=== PATIENT | male | born 1975 | race Caucasian/White ===

== ENCOUNTER 2019-05-08 14:26 | Inpatient (IN) ==
[2019-05-08] MEDS ORDERED: SODIUM CHLORIDE 0.9% 500 ML IV SCH (15:00)
[2019-05-08 15:12] LABS: Basophils # (auto) 0.06 K/uL (0-0.2); Basophils % (auto) 0.8 %; Eosinophils # (auto) 0.22 K/uL (0-0.5); Eosinophils % (auto) 2.9 %; Hematocrit (blood only) 47.6 % (42-52); Hemoglobin 16.6 g/dL (14.0-18.0); Immature Granulocytes # (auto) 0.02 K/uL (0.00-0.02); Immature Granulocytes % (auto) 0.3 %; Lymphocytes # (auto) 1.46 K/uL (1.2-3.4); Lymphocytes % (auto) 19.2 %; Mean Corpuscular Hgb Conc 34.9 g/dL (32-36); Mean Corpuscular Volume 84.1 fL (80-100); Mean Platelet Volume 10.5 fL (7.4-10.4); Monocytes # (auto) 0.56 K/uL (0.11-0.59); Monocytes % (auto) 7.4 %; Neutrophils # (auto) 5.28 K/uL (1.4-6.5); Neutrophils % (auto) 69.4 %; Platelet Count 275 K/uL (130-400); RDW Coefficient of Variation 13.4 % (11.5-14.5); RDW Standard Deviation 40.5 fL (36.4-46.3); Red Blood Count 5.66 M/uL (4.7-6.1)
--- NOTE | 2019-05-08 15:13 | XRay Report ---
XR chest 1V portable HISTORY: 43 years-old Male Chest Pain acute atypical chest pain COMPARISON: Chest radiographs 12/04/2012 TECHNIQUE: Portable AP view of the chest FINDINGS: Partly mediastinal and hilar silhouettes appear unremarkable. There is no pneumothorax, pleural effus ion, focal airspace consolidation or overt pulmonary edema. Bones of the chest appear grossly intact. IMPRESSION: No acute process. The above report was generated using voice recognition software. It may contain grammatical, syntax o r spelling errors. Electronically signed by: Cliff Alford M.D. 05/08/2019 3:12 PM
[2019-05-08] MEDS ORDERED: DiphenhydrAMINE HCL 50 MG/ML VIAL IV STA (15:16)
[2019-05-08] MEDS ORDERED: SODIUM CHLORIDE 0.9% 1000ML 500 ML IV ONE (15:16)
[2019-05-08] MEDS ORDERED: PROCHLORPERAZINE 2 ML IV ONE (15:16)
[2019-05-08 15:35] LABS: Alanine Aminotransferase 29 U/L (12-78); Albumin Level 3.6 gm/dl (3.4-5.0); Aspartate Aminotransferase 20 U/L (15-37); BUN Creatinine Ratio 13.5 (10-20); Blood Urea Nitrogen 16 mg/dl (7-18); Calcium 8.3 mg/dl (8.5-10.1); Carbon Dioxide 25 mmol/L (21-32); Chloride 108 mmol/L (98-107); Est GFR (African American) 88.3; Est GFR (Non-African American) 76.2; Glucose 106 mg/dl (70-99); Potassium 3.7 mmol/L (3.5-5.1); Sodium 139 mmol/L (136-145)
[2019-05-08 15:49] LABS: Albumin Globulin Ratio 0.9 (0.9-2); Alkaline Phosphatase 105 U/L (45-117); Bilirubin,Total 0.4 mg/dl (0.2-1); Globulin 4.2 gm/dl (2.5-4.0); Magnesium 2.2 mg/dl (1.8-2.4); Phosphorus 2.5 mg/dl (2.5-4.9); Total Protein 7.8 gm/dl (6.4-8.2); Troponin I < 0.015 ng/ml (0-0.045)
[2019-05-08] MEDS ORDERED: OPTIRAY 320 125ml IV PRN (16:02)
--- NOTE | 2019-05-08 16:14 | CT Scan Report ---
UNENHANCED CT OF THE BRAIN; CT ANGIOGRAM OF THE BRAIN; CT ANGIOGRAM OF THE NECK CLINICAL HISTORY: Ataxia. COMPARISON STUDY: No priors. TECHNIQUE: Unenhanced axial CT scan of the brain is performed. Subsequently, following the IV adminis tration of 120 of Optiray 320, CT angiogram of the head and neck was performed from the aortic arch t o the vertex. Images are reviewed in the axial, sagittal, and coronal planes. 3-D MIPS images are cre ated and assessed. IV contrast was administered without complication. All measurements were calculate d based on NASCET criteria. A dose lowering technique was utilized adhering to the principles of ALA RA. CT DOSE: 1301.31 mGy.cm FINDINGS: Brain parenchyma: The brain parenchyma is normal in appearance. There is no hemorrhage, mass effect, or evidence of acute territorial ischemia by CT criteria. There is no evidence of enhancing mass lesi on on the angiogram phase images. The ventricles, sulci, and cisterns are normal in configuration. Gr ay-white matter differentiation is preserved. No extra-axial fluid collection is seen. Thoracic aorta: Visualized portions of the thoracic aorta are normal in caliber. The aortic arch demo nstrates bovine variant anatomy. Right carotid arterial system: The right common carotid artery is widely patent, as are the right int ernal and external carotid arteries. Left carotid arterial system: The left common carotid artery is widely patent, as are the left medical assistant internal medicine al and external carotid arteries. Vertebral arteries: The vertebral arteries are widely patent bilaterally and codominant. There is a s hort segment of fenestration of the right vertebral artery at the level of C2. Subclavian arteries: Widely patent bilaterally. Intracranial vasculature: There is origin of the right posterior cerebral artery. The internal carotid arteries are patent at the skull base, as are the anterior and middle cerebral arteries bilat erally. The vertebrobasilar system and posterior cerebral arteries are widely patent. The left verteb ral artery is dominant. There is no aneurysm, high-grade stenosis, or focal vessel cut off seen throu ghout the intracranial circulation. Jugular veins: Widely patent bilaterally. Dural sinuses: Patent. Lung apices: Partially visualized upper lobe lung parenchyma appears clear. Soft tissues: The visualized pharyngeal soft tissues are normal in appearance noting angiographic pha se technique. The oropharyngeal airway appears widely patent. The salivary and thyroid glands are nor mal in appearance. No cervical lymphadenopathy is seen. Skeletal structures: The calvarium appears intact. The cervical spine is within normal limits. Orbits: The bony orbits are intact. Orbital contents are normal in appearance. Sinuses and mastoids: The paranasal sinuses are clear. The mastoid air cells are well pneumatized. IMPRESSION: 1. There is no hemorrhage, mass effect, or evidence of acute territorial ischemia by CT criteria. 2. Unremarkable CT angiogram of the brain. 3. Unremarkable CT angiogram of the neck. Electronically signed by: Michael Jordan M.D. 05/08/2019 4:13 PM
[2019-05-08 16:31] LABS: Appearance Urine Cloudy (Clear); Bacteria Urine Automated Negative (Negative); Bilirubin Urine Negative (Negative); Color Urine Yellow; Epithelial Cell Urine Auto >30 /lpf (0-5); Glucose Urine UA Negative (Negative); Ketones Urine Negative (Negative); Leukocyte Esterase Urine Negative (Negative); Nitrite Urine Negative (Negative); Protein Urine Trace (Negative); Specific Gravity Urine 1.032 (1.000-1.030); Urobilinogen Urine Negative (Negative); pH Urine 6.5 (4.5-7.5)
[2019-05-08] MEDS ORDERED: GADOBUTROL 65ML VIAL IV PRN (20:27)
--- NOTE | 2019-05-08 20:43 | Magnetic Resonance Report ---
MRI OF THE BRAIN COMBO CLINICAL HISTORY: Ataxia. COMPARISON STUDY: CT of the brain performed the same day 05/08/2019. TECHNIQUE: MRI of the brain was performed utilizing various T1 and T2-weighted sequences in the axial , sagittal, and coronal planes. Contrast-enhanced sequences were acquired following the administratio n of 12 cc of Gadavist. FINDINGS: Brain parenchyma: There is an 11 mm focus of restricted diffusion identified in the left farida consist ent with an acute to subacute lacunar infarct. No additional foci of restricted diffusion are identif ied. There is minimal subcortical and periventricular microangiopathic change. There is no hemorrhage or mass effect. No enhancing mass lesion is identified on the postcontrast images. Munguia-white matte r differentiation is preserved. No extra-axial fluid collection is seen. The cerebellar tonsils are n ormal in configuration. Ventricles, sulci, and cisterns: Normal in configuration. Pituitary and sella: Unremarkable. Intracranial vasculature: Normal flow voids are maintained at the skull base. Orbits: The bony orbits are grossly intact. Orbital contents are normal in appearance. Sinuses and mastoids: Trace mucosal thickening is noted in the maxillary antra and ethmoid sinuses. T he mastoid air cells are clear. Calvarium: Unremarkable. Cervical cord: Partially visualized cervical spinal cord is normal in morphology and signal intensity . IMPRESSION: 1. There is an 11 mm focus of restricted diffusion identified in the left farida consistent with an acu te to subacute lacunar infarct. 2. No additional foci of restricted diffusion are identified. 3. There is no hemorrhage or mass effect. Electronically signed by: Michael Jordan M.D. 05/08/2019 8:42 PM
[2019-05-08] MEDS ORDERED: ASPIRIN CHEW 324 MG PO STA (21:38)
--- NOTE | 2019-05-08 22:12 | History & Physical Report ---
Date of Service May 08, 2019 Assessment & Plan (1) Stroke: Pt is a 43yo with a Hx of HTN not currently on medication presenting with new onset aphasia and coordination problems. Was found to have a lacunar stroke in the ED. Stroke -Pt out of the TPA window -MRI 05/08 showing an acute infarct in the left farida suggesting a lacunar stroke. -Heat CT, Head CTA, neck CTA all unremarkable. -will start on aspirin, high intensity statin -will get an echo -will start a hypercoaguable workup -will get lipid panel, hgb a1c -pt/ot, speech evals ordered -neuro consult placed -will admit to PCU with tele for neuro monitoring HTN -will allow a permissive HTN post-stroke currently -For BPs greater than systolic 180 or diastolic 110 can consider prn labetalol -will likely need watermelon inspector treatment DVT prophylaxis: SCDs until hypercoaguable workup done. Then can consider chemical prophylaxis. FEN/GI: Heart healthy diet CODE STATUS: FULL Dispo: PCU/Tele History of Present Illness Primary Care Provider: Renaldo Jacobo III, MIRIAN Pt is a 43yo with a Hx of HTN not currently on medication presenting with new onset aphasia and what he describes as right sided coordination problems. Was found to have a lacunar stroke in the ED. Pt states that he has a Hx of HTN that he was treating with exercise and diet after stopping his medication about 1 year ago (not sure what medication he was on). Denies a Hx of HTN or HLD, as well as a family Hx of it. States he was in his usual state of health AM 05/07 when he noticed he was having right sided coordination problems and difficulty getting out his words. PMHx: HTN Social Hx: Lives at home with ; states diet is usually healthy when is around but he had donuts this AM since she was away. States he exercises by walking the dog and riding to work. Denies a smoking Hx, use of alcohol or recreational drugs. Meds: None Allergies: None Allergies Allergy/AdvReac Type Severity Reaction Status Date / Time No Known Drug Allergies Allergy . Verified 05/08/19 15:48 Home Medications Home Medications Medication Instructions Recorded Confirmed Type No Known Home Medications 05/08/19 05/08/19 History aspirin [Ecotrin Low Strength] 81 mg PO QAM 30 Days #30 tab 05/09/19 Rx atorvastatin 80 mg PO QAM 30 Days #60 tab 05/09/19 Rx lisinopril 20 mg PO DAILY #30 tab 05/09/19 Rx Past Med/Surg History Medical History HTN (hypertension) (Chronic) Surgical History S/P wisdom tooth extraction Family History Grandfather Prostate cancer Coronary arteriosclerosis Myocardial infarction Unknown No problems noted. 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 Required: No Beliefs That Will Affect Care: None marital status: Current Living Situation: Spouse current occupational status: employed current occupation: [employer] Feels Safe at Home: Yes Smoking Status: Never smoker Hx Alcohol Use: Yes Alcohol type: beer, wine and hard liquor Alcohol Intake Frequency: Rarely Alcohol Intake Frequency Comment: Once per month on average Hx Substance Use: No Childhood Exposure to Second-Hand Smoke: Yes Dental Care, Regularly: No Physical Activity Frequency: 3-4 Times per Week Seatbelt Use: always Sunscreen Use: Yes Review of Systems Constitutional: no fever, no chills, no fatigue, no weakness and no anorexia Eyes: no blind spots, no diplopia, no spots in vision and no worsening vision Ear, Nose, Mouth, Throat: no ear pain, no tinnitus and no dizziness Respiratory: no dyspnea Cardiovascular: no chest pain, no palpitations and no lightheadedness Gastrointestinal: no abdominal pain, no nausea and no vomiting Musculoskeletal: no body aches Neurologic: no falls, no dizziness and no headache(s) Physical Exam Constitutional: WD/WN, vitals as above + obese Eyes: PERRL, conjunctivae normal, anicteric sclerae ENMT: external ear and nose normal, oropharynx normal Respiratory: normal respiratory effort, lungs clear to auscultation Cardiovascular: RRR, no murmur, no edema Gastrointestinal (Abdomen): Inspection/Auscultation: abdomen normal to inspection Percussion/Palpation: abdomen soft; abdomen nontender and no guarding Musculoskeletal: no cyanosis or clubbing, extremities motor strength 5/5 Neurologic: PERRL, EOMI, accommodation nl, no face palsy, no dysarthria (pt with no dysarthria on exam) Psychiatric: A+Ox3, euthymic affect Results & Data Vital Signs (Past 12 Hours) Vital Signs Temp Pulse Pulse Resp BP BP Pulse Ox 05/08/19 21:11 70 18 174/120 H 96 05/08/19 19:32 72 18 173/113 H 98 05/08/19 18:08 87 18 151/113 H 97 05/08/19 16:11 75 18 175/115 H 98 05/08/19 14:54 88 18 192/119 H 98 05/08/19 14:35 36.6 C 92 H 20 216/130 H 97 Laboratory Results Laboratory Results - last 24 hr 05/08/19 05/08/19 05/08/19 15:01 15:01 15:01 WBC 7.60 RBC 5.66 Hgb 16.6 Hct 47.6 MCV 84.1 MCH 29.3 MCHC 34.9 RDW Std Deviation 40.5 RDW Coeff of Cara 13.4 Plt Count 275 MPV 10.5 H Immature Gran % (Auto) 0.3 Neut % (Auto) 69.4 Lymph % (Auto) 19.2 [place] % (Auto) 7.4 Eos % (Auto) 2.9 Baso % (Auto) 0.8 Immature Gran # (Auto) 0.02 Neut # (Auto) 5.28 Lymph # (Auto) 1.46 [place] # (Auto) 0.56 Eos # (Auto) 0.22 Baso # (Auto) 0.06 Sodium 139 Potassium 3.7 Chloride 108 H Carbon Dioxide 25 Anion Gap 6.0 BUN 16 Creatinine 1.16 Est Cr Clr Drug Dosing Not Reportable Est GFR ( Amer) 88.3 Est GFR (Non-Af Amer) 76.2 BUN/Creatinine Ratio 13.5 Glucose 106 H Calcium 8.3 L Phosphorus 2.5 Cancelled Magnesium 2.2 Cancelled Total Bilirubin 0.4 AST 20 ALT 29 Alkaline Phosphatase 105 Troponin I < 0.015 Total Protein 7.8 Albumin 3.6 Globulin 4.2 H Albumin/Globulin Ratio 0.9 Lipase 111 TSH 1.930 Cancelled Specimen Hemolysis Urine Color Urine Appearance Urine pH Ur Specific [place] Urine Protein Urine Glucose (UA) Urine Ketones Urine Blood Urine Nitrite Urine Bilirubin Urine Urobilinogen Ur Leukocyte Esterase Urine WBC (Auto) Urine RBC (Auto) U Hyaline Cast (Auto) U Epithel Cells (Auto) Urine Bacteria (Auto) 05/08/19 16:16 WBC RBC Hgb Hct MCV MCH MCHC RDW Std Deviation RDW Coeff of Cara Plt Count MPV Immature Gran % (Auto) Neut % (Auto) Lymph % (Auto) [place] % (Auto) Eos % (Auto) Baso % (Auto) Immature Gran # (Auto) Neut # (Auto) Lymph # (Auto) [place] # (Auto) Eos # (Auto) Baso # (Auto) Sodium Potassium Chloride Carbon Dioxide Anion Gap BUN Creatinine Est Cr Clr Drug Dosing Est GFR ( Amer) Est GFR (Non-Af Amer) BUN/Creatinine Ratio Glucose Calcium Phosphorus Magnesium Total Bilirubin AST ALT Alkaline Phosphatase Troponin I Total Protein Albumin Globulin Albumin/Globulin Ratio Lipase TSH Specimen Hemolysis Urine Color Yellow Urine Appearance Cloudy A Urine pH 6.5 Ur Specific [place] 1.032 H Urine Protein Trace H Urine Glucose (UA) Negative Urine Ketones Negative Urine Blood Negative Urine Nitrite Negative Urine Bilirubin Negative Urine Urobilinogen Negative Ur Leukocyte Esterase Negative Urine WBC (Auto) 5-10 H Urine RBC (Auto) 0-4 U Hyaline Cast (Auto) 1-5 U Epithel Cells (Auto) >30 H Urine Bacteria (Auto) Negative Medications Administered Home Medications No Known Home Medications 05/08/19 [History Confirmed 05/08/19] Active Medications Gadobutrol (Gadavist 65ml) 12 ml IV ONCE PRN PRN Reason: Interaction Checking Stop: 05/12/19 20:26 Last Admin: 05/08/19 20:27 Dose: 12 ml Documented by: Ioversol (Optiray 320 125ml) 120 ml IV ONCE PRN PRN Reason: Interaction Checking Stop: 05/12/19 16:01 Last Admin: 05/08/19 16:02 Dose: 120 ml Documented by: Supervising Physician Co-Signing Physician Notes Attending addendum: I have physically seen this patient, have supervised the medical residents activities, and agree with the H&P unless as otherwise noted. Assessment and Plan: 11 mm acute to subacute left farida lacunar infarct- The patient will be admitted to telemetry for serial cardiac enzymes, serial EKG's, cardiac rhythm monitoring and a 2-D echocardiogram with Dopplers. CT of head negative, CTA head and neck negative. MRI shows the above infarct. Start chewable aspirin 81 mg daily, and atorvastatin 80 mg daily. Well outside the therapeutic interval for TPA. Order hypercoagulable work-up. Order complete echocardiogram. Stroke without TPA protocol order set. Outside the window for permissive hypertension. Will lower systolic blood pressure in a graded fashion. Consult neurology. Remainder of orders and notations as noted. PG Care Time/CCT Total # of Minutes Spent Total Time Spent with Patient: Total time spent is greater than 50% in coordination of care (as documented) at patient's floor/unit and/or counseling patient: (1) Stroke CVA mechanism: unspecified Qualified Code(s): I63.9 - Cerebral infarction, unspecified
[2019-05-08] MEDS ORDERED: PHARMACIST DISCHARGE MED REC CONSULT PRN (22:32)
--- NOTE | 2019-05-08 23:45 | Emergency Department Note ---
Entered by Beba Spangler acting as a scribe for Swapnil Sow MD History of Present Illness General Chief complaint: Hypertension Stated complaint: ELEVATED BLOOD PRESSURE Time Seen by Provider: 05/08/19 14:51 Source: patient History of Present Illness Onset (ago): day(s) 1 Location: right (right-sided ataxia) Pain Consistency: + intermittent Maximum Pain Intensity: 0 Quality: + other (felt like he was drunk) Associated symptoms: + denies other symptoms (numbness) and + other (right arm swelling, sluggish, light-headedness); no headaches The patient is a 43 year old M who presents to the Emergency Room with complaints of intermittent right-sided ataxia that started 1 day ago. He notes that yesterday when he woke up, it felt like he was drunk. He denies any recent alcohol usage. 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 and adds that he was slurring his speech. He notes that he feels sluggish. He adds that he had to hold onto the gupta when he walks up the stairs. He notes, though, that he was able to drive himself to the ED today without issue. He states that he was at his PCPs office today. He adds that his PCP took his blood pressure and noticed that he had a systolic pressure of 170. He adds that his PCP referred him to the ED. He notes that he is currently experiencing right arm swelling and light-headedness. He denies experiencing a headache and numbness. He denies a history of headaches, exposure to ticks, and recent stress. He also denies being prescribed any regular medications. Home Medications Home Medications Medication Instructions Recorded Confirmed Type No Known Home Medications 05/08/19 05/08/19 History Allergies Allergy/AdvReac Type Severity Reaction Status Date / Time No Known Drug Allergies Allergy . Verified 05/08/19 15:48 Past Med/Surg History Medical History HTN (hypertension) (Chronic) Surgical History S/P wisdom tooth extraction Family History Grandfather Prostate cancer Coronary arteriosclerosis Myocardial infarction Unknown No problems noted. 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 and A total of 10 systems reviewed and were otherwise negative Physical Exam Vital Signs Vital Signs - 24 hr 05/08/19 14:35 05/08/19 14:54 05/08/19 16:11 Temperature 36.6 C Temperature Source Oral Sepsis Recent Fever Within 48 Hours No Sepsis Action Taken by Nursing No Action Required Pulse Rate 92 H Pulse Rate [Right Finger] 88 75 Pulse Rhythm [Right Finger] Regular Pulse Strength [Right Finger] Normal Respiratory Rate 20 18 18 Respiratory Effort / Characteristics Non-Labored Non-Labored Respiratory Depth Normal Normal Respiratory Pattern Regular Blood Pressure 216/130 H Blood Pressure [Left Arm] 192/119 H 175/115 H Blood Pressure Mean 158 Blood Pressure Mean [Left Arm] 143 135 Blood Pressure Position [Left Arm] Pulse Oximetry 97 98 98 Oxygen Delivery Method Room Air Room Air 05/08/19 18:08 05/08/19 19:32 05/08/19 21:11 Temperature Temperature Source Sepsis Recent Fever Within 48 Hours Sepsis Action Taken by Nursing Pulse Rate Pulse Rate [Right Finger] 87 72 70 Pulse Rhythm [Right Finger] Regular Regular Pulse Strength [Right Finger] Normal Normal Respiratory Rate 18 18 18 Respiratory Effort / Characteristics Non-Labored Non-Labored Respiratory Depth Normal Normal Respiratory Pattern Regular Regular Blood Pressure Blood Pressure [Left Arm] 151/113 H 173/113 H 174/120 H Blood Pressure Mean Blood Pressure Mean [Left Arm] 125 133 138 Blood Pressure Position [Left Arm] Sitting Pulse Oximetry 97 98 96 Oxygen Delivery Method Room Air Room Air 05/08/19 22:40 Temperature Temperature Source Sepsis Recent Fever Within 48 Hours Sepsis Action Taken by Nursing Pulse Rate Pulse Rate [Right Finger] 67 Pulse Rhythm [Right Finger] Regular Pulse Strength [Right Finger] Normal Respiratory Rate 18 Respiratory Effort / Characteristics Non-Labored Respiratory Depth Normal Respiratory Pattern Regular Blood Pressure Blood Pressure [Left Arm] 185/135 H Blood Pressure Mean Blood Pressure Mean [Left Arm] 151 Blood Pressure Position [Left Arm] Sitting Pulse Oximetry 95 Oxygen Delivery Method Room Air GENERAL: Awake, alert, well appearing, no distress HENT: Normocephalic, atraumatic. TM's normal. Oropharynx with dry mucous membranes and otherwise unremarkable. EYES: PERRL. EOMI. Normal conjunctiva. Sclera non-icteric. EOMI. No nystamgus. PEARRL. NECK: Supple. No nuchal rigidity. FROM. No JVD or bruit. RESPIRATORY: CTAB CARDIAC: RRR. ABDOMEN: Soft, non distended. No tenderness to palpation. No rebound or guarding. No masses. RECTAL: Deferred. MUSCULOSKELETAL: Unremarkable. No edema. No discoloration. Gross motor strength symmetric. NEURO: Normal sensorium. No sensory or motor deficits noted. 5/5 strength and SILT x4 extremities. Cerebellar function intact, including finger to nose, alternating palms, heel to haddad. SKIN: No rash or jaundice noted. LYMPH: No adenopathy Course 1508: The patient was evaluated in room C11B. A complete history and physical exam was performed. 2122: I re-checked the patient and updated him on his test results. 2136: I reviewed the patient's case with Dr. Vishal Gan, [facility] Hospitalist. He will evaluate the patient for further management. Consultations Consultation #1: I reviewed the patient's case with Dr. Vishal Gan, [facility] Hospitalist. He will evaluate the patient for further management. Time: 21:37 Administered Medications Gadobutrol (Gadavist 65ml) 12 ml IV ONCE PRN PRN Reason: Interaction Checking Stop: 05/12/19 20:26 Last Admin: 05/08/19 20:27 Dose: 12 ml Documented by: [id number] Ioversol (Optiray 320 125ml) 120 ml IV ONCE PRN PRN Reason: Interaction Checking Stop: 05/12/19 16:01 Last Admin: 05/08/19 16:02 Dose: 120 ml Documented by: [id number] Discontinued Medications Aspirin (Aspirin) 324 mg PO NOW STA Stop: 05/08/19 21:39 Last Admin: 05/08/19 21:46 Dose: 324 mg Documented by: [id number] Diphenhydramine HCl (Benadryl) 25 mg IV NOW STA Stop: 05/08/19 15:17 Last Admin: 05/08/19 15:32 Dose: 25 mg Documented by: [id number] Sodium Chloride (Nss) 500 mls @ 999 mls/hr IV .Q31M FAM Stop: 05/08/19 15:30 Last Infusion: 05/08/19 15:39 Dose: 0 mls/hr Documented by: [id number] Admin: 05/08/19 15:06 Dose: 999 mls/hr Documented by: [id number] Prochlorperazine (Compazine) 2 mls @ 1 mls/min IV ONE ONE Stop: 05/08/19 15:17 Last Admin: 05/08/19 15:33 Dose: 1 mls/min Documented by: [id number] Sodium Chloride (Nss 1000ml) 500 mls @ 999 mls/hr IV .Q31M ONE Stop: 05/08/19 15:46 Last Infusion: 05/08/19 16:25 Dose: 0 mls/hr Documented by: [id number] Admin: 05/08/19 15:30 Dose: 999 mls/hr Documented by: [id number] Medical Decision Making Differential Diagnosis Differential includes acute coronary syndrome, myocardial infarction, CVA, TIA, anemia, infection, pneumonia, UTI, pyelonephritis, poor nutrition, dehydration, electrolyte disturbance,hypoglycemia. Medical Records Attestation: I reviewed the patient's medical records. Home Medications Current Medication List: was personally reviewed by me Laboratory Data Attestation: I reviewed the patient's lab results. Result diagrams: 05/08/19 15:01 05/08/19 15:01 Lab Results 05/08/19 05/08/19 05/08/19 Range/Units 15:01 15:01 15:01 WBC 7.60 (4.8-10.8) K/uL RBC 5.66 (4.7-6.1) M/uL Hgb 16.6 (14.0-18.0) g/dL Hct 47.6 (42-52) % MCV 84.1 (80-100) fL MCH 29.3 (25-34) pg MCHC 34.9 (32-36) g/dL RDW Std Deviation 40.5 (36.4-46.3) fL RDW Coeff of Cara 13.4 (11.5-14.5) % Plt Count 275 (130-400) K/uL MPV 10.5 H (7.4-10.4) fL Immature Gran % (Auto) 0.3 % Neut % (Auto) 69.4 % Lymph % (Auto) 19.2 % Shannon % (Auto) 7.4 % Eos % (Auto) 2.9 % Baso % (Auto) 0.8 % Immature Gran # (Auto) 0.02 (0.00-0.02) K/uL Neut # (Auto) 5.28 (1.4-6.5) K/uL Lymph # (Auto) 1.46 (1.2-3.4) K/uL Shannon # (Auto) 0.56 (0.11-0.59) K/uL Eos # (Auto) 0.22 (0-0.5) K/uL Baso # (Auto) 0.06 (0-0.2) K/uL Sodium 139 (136-145) mmol/L Potassium 3.7 (3.5-5.1) mmol/L Chloride 108 H (98-107) mmol/L Carbon Dioxide 25 (21-32) mmol/L Anion Gap 6.0 (3-11) BUN 16 (7-18) mg/dl Creatinine 1.16 (0.6-1.4) mg/dl Est Cr Clr Drug Dosing Not Reportable Est GFR ( Amer) 88.3 Est GFR (Non-Af Amer) 76.2 BUN/Creatinine Ratio 13.5 (10-20) Glucose 106 H (70-99) mg/dl Calcium 8.3 L (8.5-10.1) mg/dl Phosphorus 2.5 Cancelled (2.5-4.9) mg/dl Magnesium 2.2 Cancelled (1.8-2.4) mg/dl Total Bilirubin 0.4 (0.2-1) mg/dl AST 20 (15-37) U/L ALT 29 (12-78) U/L Alkaline Phosphatase 105 (45-117) U/L Troponin I < 0.015 (0-0.045) ng/ml Total Protein 7.8 (6.4-8.2) gm/dl Albumin 3.6 (3.4-5.0) gm/dl Globulin 4.2 H (2.5-4.0) gm/dl Albumin/Globulin Ratio 0.9 (0.9-2) Lipase 111 (73-393) U/L TSH 1.930 Cancelled (0.300-4.500) uIu/ml Specimen Hemolysis Urine Color Urine Appearance (Clear) Urine pH (4.5-7.5) Ur Specific [place] (1.000-1.030) Urine Protein (Negative) Urine Glucose (UA) (Negative) Urine Ketones (Negative) Urine Blood (Negative) Urine Nitrite (Negative) Urine Bilirubin (Negative) Urine Urobilinogen (Negative) Ur Leukocyte Esterase (Negative) Urine WBC (Auto) (0-5) /hpf Urine RBC (Auto) (0-4) /hpf U Hyaline Cast (Auto) (0-5) /lpf U Epithel Cells (Auto) (0-5) /lpf Urine Bacteria (Auto) (Negative) 05/08/19 Range/Units 16:16 WBC (4.8-10.8) K/uL RBC (4.7-6.1) M/uL Hgb (14.0-18.0) g/dL Hct (42-52) % MCV (80-100) fL MCH (25-34) pg MCHC (32-36) g/dL RDW Std Deviation (36.4-46.3) fL RDW Coeff of Cara (11.5-14.5) % Plt Count (130-400) K/uL MPV (7.4-10.4) fL Immature Gran % (Auto) % Neut % (Auto) % Lymph % (Auto) % Shannon % (Auto) % Eos % (Auto) % Baso % (Auto) % Immature Gran # (Auto) (0.00-0.02) K/uL Neut # (Auto) (1.4-6.5) K/uL Lymph # (Auto) (1.2-3.4) K/uL Shannon # (Auto) (0.11-0.59) K/uL Eos # (Auto) (0-0.5) K/uL Baso # (Auto) (0-0.2) K/uL Sodium (136-145) mmol/L Potassium (3.5-5.1) mmol/L Chloride (98-107) mmol/L Carbon Dioxide (21-32) mmol/L Anion Gap (3-11) BUN (7-18) mg/dl Creatinine (0.6-1.4) mg/dl Est Cr Clr Drug Dosing Est GFR ( Amer) Est GFR (Non-Af Amer) BUN/Creatinine Ratio (10-20) Glucose (70-99) mg/dl Calcium (8.5-10.1) mg/dl Phosphorus (2.5-4.9) mg/dl Magnesium (1.8-2.4) mg/dl Total Bilirubin (0.2-1) mg/dl AST (15-37) U/L ALT (12-78) U/L Alkaline Phosphatase (45-117) U/L Troponin I (0-0.045) ng/ml Total Protein (6.4-8.2) gm/dl Albumin (3.4-5.0) gm/dl Globulin (2.5-4.0) gm/dl Albumin/Globulin Ratio (0.9-2) Lipase (73-393) U/L TSH (0.300-4.500) uIu/ml Specimen Hemolysis Urine Color Yellow Urine Appearance Cloudy A (Clear) Urine pH 6.5 (4.5-7.5) Ur Specific [place] 1.032 H (1.000-1.030) Urine Protein Trace H (Negative) Urine Glucose (UA) Negative (Negative) Urine Ketones Negative (Negative) Urine Blood Negative (Negative) Urine Nitrite Negative (Negative) Urine Bilirubin Negative (Negative) Urine Urobilinogen Negative (Negative) Ur Leukocyte Esterase Negative (Negative) Urine WBC (Auto) 5-10 H (0-5) /hpf Urine RBC (Auto) 0-4 (0-4) /hpf U Hyaline Cast (Auto) 1-5 (0-5) /lpf U Epithel Cells (Auto) >30 H (0-5) /lpf Urine Bacteria (Auto) Negative (Negative) Imaging Data Radiologist's Impression: Radiology results as stated below per my review and the radiologist's interpretation: XR chest 1V portable HISTORY: 43 years-old Male Chest Pain acute atypical chest pain COMPARISON: Chest radiographs 12/04/2012 TECHNIQUE: Portable AP view of the chest FINDINGS: Partly mediastinal and hilar silhouettes appear unremarkable. There is no pneumothorax, pleural effusion, focal airspace consolidation or overt pulmonary edema. Bones of the chest appear grossly intact. IMPRESSION: No acute process. The above report was generated using voice recognition software. It may contain grammatical, syntax or spelling errors. Electronically signed by: Cliff Alford M.D. 05/08/2019 3:[address] OF THE BRAIN; CT ANGIOGRAM OF THE BRAIN; CT ANGIOGRAM OF THE NECK CLINICAL HISTORY: Ataxia. COMPARISON STUDY: No priors. TECHNIQUE: Unenhanced axial CT scan of the brain is performed. Subsequently, following the IV administration of 120 of Optiray 320, CT angiogram of the head and neck was performed from the aortic arch to the vertex. Images are reviewed in the axial, sagittal, and coronal planes. 3-D MIPS images are created and assessed. IV contrast was administered without complication. All measurements were calculated based on NASCET criteria. A dose lowering technique was utilized adhering to the principles of ALARA. CT DOSE: 1301.31 mGy.cm FINDINGS: Brain parenchyma: The brain parenchyma is normal in appearance. There is no hemorrhage, mass effect, or evidence of acute territorial ischemia by CT criteria. There is no evidence of enhancing mass lesion on the angiogram phase images. The ventricles, sulci, and cisterns are normal in configuration. Munguia- white matter differentiation is preserved. No extra-axial fluid collection is seen. Thoracic aorta: Visualized portions of the thoracic aorta are normal in caliber. The aortic arch demonstrates bovine variant anatomy. Right carotid arterial system: The right common carotid artery is widely patent, as are the right internal and external carotid arteries. Left carotid arterial system: The left common carotid artery is widely patent, as are the left internal and external carotid arteries. Vertebral arteries: The vertebral arteries are widely patent bilaterally and codominant. There is a short segment of fenestration of the right vertebral artery at the level of C2. Subclavian arteries: Widely patent bilaterally. Intracranial vasculature: There is origin of the right posterior cerebral artery. The internal carotid arteries are patent at the skull base, as are the anterior and middle cerebral arteries bilaterally. The vertebrobasilar system and posterior cerebral arteries are widely patent. The left vertebral artery is dominant. There is no aneurysm, high-grade stenosis, or focal vessel cut off seen throughout the intracranial circulation. Jugular veins: Widely patent bilaterally. Dural sinuses: Patent. Lung apices: Partially visualized upper lobe lung parenchyma appears clear. Soft tissues: The visualized pharyngeal soft tissues are normal in appearance noting angiographic phase technique. The oropharyngeal airway appears widely patent. The salivary and thyroid glands are normal in appearance. No cervical lymphadenopathy is seen. Skeletal structures: The calvarium appears intact. The cervical spine is within normal limits. Orbits: The bony orbits are intact. Orbital contents are normal in appearance. Sinuses and mastoids: The paranasal sinuses are clear. The mastoid air cells are well pneumatized. IMPRESSION: 1. There is no hemorrhage, mass effect, or evidence of acute territorial ischemia by CT criteria. 2. Unremarkable CT angiogram of the brain. 3. Unremarkable CT angiogram of the neck. Electronically signed by: Michael Jordan M.D. 05/08/2019 4:[address] OF THE BRAIN; CT ANGIOGRAM OF THE BRAIN; CT ANGIOGRAM OF THE NECK CLINICAL HISTORY: Ataxia. COMPARISON STUDY: No priors. TECHNIQUE: Unenhanced axial CT scan of the brain is performed. Subsequently, following the IV administration of 120 of Optiray 320, CT angiogram of the head and neck was performed from the aortic arch to the vertex. Images are reviewed in the axial, sagittal, and coronal planes. 3-D MIPS images are created and assessed. IV contrast was administered without complication. All measurements were calculated based on NASCET criteria. A dose lowering technique was utilized adhering to the principles of ALARA. CT DOSE: 1301.31 mGy.cm FINDINGS: Brain parenchyma: The brain parenchyma is normal in appearance. There is no hemorrhage, mass effect, or evidence of acute territorial ischemia by CT criteria. There is no evidence of enhancing mass lesion on the angiogram phase images. The ventricles, sulci, and cisterns are normal in configuration. Munguia- white matter differentiation is preserved. No extra-axial fluid collection is seen. Thoracic aorta: Visualized portions of the thoracic aorta are normal in caliber. The aortic arch demonstrates bovine variant anatomy. Right carotid arterial system: The right common carotid artery is widely patent, as are the right internal and external carotid arteries. Left carotid arterial system: The left common carotid artery is widely patent, as are the left internal and external carotid arteries. Vertebral arteries: The vertebral arteries are widely patent bilaterally and codominant. There is a short segment of fenestration of the right vertebral artery at the level of C2. Subclavian arteries: Widely patent bilaterally. Intracranial vasculature: There is origin of the right posterior cerebral artery. The internal carotid arteries are patent at the skull base, as are the anterior and middle cerebral arteries bilaterally. The vertebrobasilar system and posterior cerebral arteries are widely patent. The left vertebral artery is dominant. There is no aneurysm, high-grade stenosis, or focal vessel cut off seen throughout the intracranial circulation. Jugular veins: Widely patent bilaterally. Dural sinuses: Patent. Lung apices: Partially visualized upper lobe lung parenchyma appears clear. Soft tissues: The visualized pharyngeal soft tissues are normal in appearance noting angiographic phase technique. The oropharyngeal airway appears widely pa tent. The salivary and thyroid glands are normal in appearance. No cervical lymphadenopathy is seen. Skeletal structures: The calvarium appears intact. The cervical spine is within normal limits. Orbits: The bony orbits are intact. Orbital contents are normal in appearance. Sinuses and mastoids: The paranasal sinuses are clear. The mastoid air cells are well pneumatized. IMPRESSION: 1. There is no hemorrhage, mass effect, or evidence of acute territorial ischemia by CT criteria. 2. Unremarkable CT angiogram of the brain. 3. Unremarkable CT angiogram of the neck. Electronically signed by: Michael Jordan M.D. 05/08/2019 4:[address] OF THE BRAIN; CT ANGIOGRAM OF THE BRAIN; CT ANGIOGRAM OF THE NECK CLINICAL HISTORY: Ataxia. COMPARISON STUDY: No priors. TECHNIQUE: Unenhanced axial CT scan of the brain is performed. Subsequently, following the IV administration of 120 of Optiray 320, CT angiogram of the head and neck was performed from the aortic arch to the vertex. Images are reviewed in the axial, sagittal, and coronal planes. 3-D MIPS images are created and assessed. IV contrast was administered without complication. All measurements were calculated based on NASCET criteria. A dose lowering technique was utilized adhering to the principles of ALARA. CT DOSE: 1301.31 mGy.cm FINDINGS: Brain parenchyma: The brain parenchyma is normal in appearance. There is no hemorrhage, mass effect, or evidence of acute territorial ischemia by CT criteria. There is no evidence of enhancing mass lesion on the angiogram phase i mages. The ventricles, sulci, and cisterns are normal in configuration. Munguia- white matter differentiation is preserved. No extra-axial fluid collection is seen. Thoracic aorta: Visualized portions of the thoracic aorta are normal in caliber. The aortic arch demonstrates bovine variant anatomy. Right carotid arterial system: The right common carotid artery is widely patent, as are the right internal and external carotid arteries. Left carotid arterial system: The left common carotid artery is widely patent, as are the left internal and external carotid arteries. Vertebral arteries: The vertebral arteries are widely patent bilaterally and codominant. There is a short segment of fenestration of the right vertebral artery at the level of C2. Subclavian arteries: Widely patent bilaterally. Intracranial vasculature: There is origin of the right posterior cerebral artery. The internal carotid arteries are patent at the skull base, as are the anterior and middle cerebral arteries bilaterally. The vertebrobasilar system and posterior cerebral arteries are widely patent. The left vertebral artery is dominant. There is no aneurysm, high-grade stenosis, or focal vessel cut off seen throughout the intracranial circulation. Jugular veins: Widely patent bilaterally. Dural sinuses: Patent. Lung apices: Partially visualized upper lobe lung parenchyma appears clear. Soft tissues: The visualized pharyngeal soft tissues are normal in appearance noting angiographic phase technique. The oropharyngeal airway appears widely patent. The salivary and thyroid glands are normal in appearance. No cervical lymphadenopathy is seen. Skeletal structures: The calvarium appears intact. The cervical spine is within normal limits. Orbits: The bony orbits are intact. Orbital contents are normal in appearance. Sinuses and mastoids: The paranasal sinuses are clear. The mastoid air cells are well pneumatized. IMPRESSION: 1. There is no hemorrhage, mass effect, or evidence of acute territorial ischemia by CT criteria. 2. Unremarkable CT angiogram of the brain. 3. Unremarkable CT angiogram of the neck. Electronically signed by: Michael Jordan M.D. 05/08/2019 4:13 PM MRI OF THE BRAIN COMBO CLINICAL HISTORY: Ataxia. COMPARISON STUDY: CT of the brain performed the same day 05/08/2019. TECHNIQUE: MRI of the brain was performed utilizing various T1 and T2-weighted sequences in the axial, sagittal, and coronal planes. Contrast-enhanced sequences were acquired following the administration of 12 cc of Gadavist. FINDINGS: Brain parenchyma: There is an 11 mm focus of restricted diffusion identified in the left farida consistent with an acute to subacute lacunar infarct. No additional foci of restricted diffusion are identified. There is minimal subcortical and periventricular microangiopathic change. There is no hemorrhage or mass effect. No enhancing mass lesion is identified on the postcontrast images. Munguia-white matter differentiation is preserved. No extra-axial fluid collection is seen. The cerebellar tonsils are normal in configuration. Ventricles, sulci, and cisterns: Normal in configuration. Pituitary and sella: Unremarkable. Intracranial vasculature: Normal flow voids are maintained at the skull base. Orbits: The bony orbits are grossly intact. Orbital contents are normal in appearance. Sinuses and mastoids: Trace mucosal thickening is noted in the maxillary antra and ethmoid sinuses. The mastoid air cells are clear. Calvarium: Unremarkable. Cervical cord: Partially visualized cervical spinal cord is normal in morphology and signal intensity. IMPRESSION: 1. There is an 11 mm focus of restricted diffusion identified in the left farida consistent with an acute to subacute lacunar infarct. 2. No additional foci of restricted diffusion are identified. 3. There is no hemorrhage or mass effect. Electronically signed by: Michael Jordan M.D. 05/08/2019 8:42 PM ECG Data Attestation: I personally reviewed and interpreted this ECG as follows: Indication: weakness Rate (beats per minute): 87 Rhythm: normal sinus Findings: + T-wave inversion (Inferior and Lateral); no acute ischemic change Comparison ECG Date: no prior available Blood Pressure Blood Pressure Findings: Elevated blood pressure Blood Pressure Disposition: further management by hospitalist BRUNO Narrative The patient is a pleasant 43-year-old gentleman who presents emergency department with symptoms of ataxia which began yesterday morning per hpi. Given patients sx began >24 hours ago, patient is not a tpa or endovascular candidate and so no indication for stroke alert. On arrival patient is anxious appearing, no acute distress, afebrile stable vital signs. The patient appears clinically dry. He is neurologically intact without objective deficits. NIHSS 0. EOMI. No nystamgus. PEARRL. Cerebellar function intact including [id number], alternating palms, fxey-lg-urgy. 5/5 strength and SILT x 4 extremities. Steady gait. EKG inferior and lateral T wave inversions without prior for comparison. Chest x-ray negative. CTA of the head and neck unremarkable for acute findings. WBC, H/H, platelets wnl. Chemistry without acidosis. LFTs and electrolytes unremarkable. Troponin negative. UA negative for infection. MRI demonstrates subacute to acute lacuar infarct of the left farida. Case was discussed with Dr. Gan, [facility] [place] hospitalist will evaluate the patient for admission for further stroke evaluation. Patient given full dose ASA. Impression & Plan Stroke, Hypertension Discharge Plan Visit Data *Final* Discharge Date/Time: 05/08/19 23:27 Chief Complaint: Hypertension Stated Complaint: ELEVATED BLOOD PRESSURE ED Provider: Swapnil Sow Discharge Problem: Stroke, Hypertension Patient Disposition: Admitted As Inpatient Discharge Instructions Interventions: ED Discharge Assessment Last Done: 05/08/19 23:27 The scribe's documentation has been prepared under my direction and personally reviewed by me in its entirety. I confirm that the note above accurately reflec ts all work, treatment, procedures, and medical decision making performed by me.
[2019-05-09 06:34] LABS: Basophils # (auto) 0.08 K/uL (0-0.2); Eosinophils # (auto) 0.35 K/uL (0-0.5); Eosinophils % (auto) 4.3 %; Hematocrit (blood only) 46.4 % (42-52); Hemoglobin 15.8 g/dL (14.0-18.0); Immature Granulocytes # (auto) 0.02 K/uL (0.00-0.02); Immature Granulocytes % (auto) 0.2 %; Lymphocytes # (auto) 2.09 K/uL (1.2-3.4); Lymphocytes % (auto) 25.4 %; Mean Corpuscular Hgb Conc 34.1 g/dL (32-36); Mean Corpuscular Volume 85.9 fL (80-100); Mean Platelet Volume 10.5 fL (7.4-10.4); Monocytes # (auto) 0.79 K/uL (0.11-0.59); Monocytes % (auto) 9.6 %; Neutrophils % (auto) 59.5 %; Platelet Count 275 K/uL (130-400); RDW Coefficient of Variation 13.5 % (11.5-14.5); RDW Standard Deviation 42.4 fL (36.4-46.3); White Blood Count 8.23 K/uL (4.8-10.8)
[2019-05-09 07:17] LABS: BUN Creatinine Ratio 13.3 (10-20); Creatinine Clr Calc Pharmacy 117.5 ml/min; Est GFR (African American) 99.6; Est GFR (Non-African American) 85.9; Potassium 3.7 mmol/L (3.5-5.1)
[2019-05-09 07:54] LABS: Estimated Average Glucose 97 mg/dl
[2019-05-09] MEDS ORDERED: ASPIRIN 81 MG ECTAB PO SCH (09:00)
[2019-05-09] MEDS ORDERED: ATORVASTATIN 40 MG TAB PO SCH (09:00)
--- NOTE | 2019-05-09 11:12 | Neurology Consultation ---
Date of Consultation May 09, 2019 Assessment & Plan (1) Stroke: Patient had an acute 11 mm left pontine stroke likely secondary to hypertensive small vessel ischemic disease. The rest of his MRI was unremarkable and CT angiography of the head neck were unremarkable. Echocardiogram is pending. Currently on examination he has some slight clumsiness of the right hand and foot compared to the left with no ataxia, aphasia or some dysarthria, mentation issues, or other focal neurologic deficits. Risk factors for stroke are primarily hypertension although some dyslipidemia contributes. He has never been a smoker does not have diabetes. He does not drink alcohol. He does have snoring and some pauses in breathing was sleeping so sleep apnea is suspected. This is an independent risk factor for stroke. (2) Hypertension: Patient had significant hypertension on admission. It is still high but improved from his initial ER visit. (3) Snoring: Patient has history of snoring and pauses in breathing asleep according to his who I spoke to this morning. He likely has sleep apnea. Recommendations: 1. Continue 81 mg aspirin tablet daily 2. He is a high dose statin candidate (as long as his blood pressure is controlled and his intracranial hemorrhage risk is less) 3. Control blood pressure a being for a mean arterial pressure of approximately 100. 4. Awaiting echocardiogram results. 5. Sleep medicine consult/sleep study as an outpatient. 6. I can follow as an outpatient, if desired. 7. Increase activity slowly and he will need a good diet and exercise program with regular sleep to help reduce stroke risk. He would benefit from outpatient physical therapy. Overall, I spent a total of 65 minutes with this case including review of records, review of MRI films, direct evaluation the patient at bedside, and discussion of the case with the patient, his , and mother at bedside, and Dr. Camacho, including differential diagnosis and treatment options. History of Present Illness Reason for Consultation: Patient is a 43-year-old, who I was asked to see at the request of Dr. Sanches, for neurologic consultation regarding stroke. Requesting Physician: Dr. Sanches Attending Physician: Antwan Camacho, DO History of Present Illness This patient does have a history of some hypertension in the past which she tried to help with diet and exercise. Apparently he was on a medication (lisinopril we think) but he stopped this about a year ago. He has no history of tobacco use/cigarette smoking, heart disease or dysrhythmia, diabetes, or cholesterol issues. Patient has had longstanding problems with snoring and pauses of breathing during sleep. He has not been assessed for sleep apnea. He has been staying up late and not getting adequate sleep. Patient woke on May 07 at 0700 feeling little bit off balance (as if he was drunk), excessively fatigued, and mild slurred speech. 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 He was very tired and nap. He woke at 1 o'clock in still felt fatigued in general with some dizziness/lightheadedness and feelings of weakness in general. He went back to the have and woke up at 6:00 p.m. again feeling fatigued and decreased coordination. 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 He woke on May 08 and still felt all the symptoms. 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 He was found to have an elevated blood pressure 152/110 and then again 170/120. He felt poorly with the same off-balance feeling and lightheadedness. He was diaphoretic. He arrived to the emergency room May 08 at 1435 with a blood pressure of 210/130, temperature 36.6, pulse 92 and regular, respiratory rate 20, and O2 saturation 97%. Neuro exam was described as being nonfocal although there was a question of some coordination problem right hand and ability to smoothly get words out. CBC was unremarkable as was Chem profile. Glucose was 106. TSH was 1.9 and urinalysis was unremarkable. Hemoglobin A1c was 5.0 and fasting triglycerides today were 179 with a total cholesterol of 184, HDL of 33 and LDL of 115. CT scan of the head was unremarkable. CT angiography of the head and neck were unremarkable with no significant vascular anomalies or stenoses. MRI of the brain showed a small, 11 mm left pontine stroke without mass effect or enhancement. There were no other abnormalities seen on MRI with or without contrast. He was given 81 mg aspirin tablet, atorvastatin 80 mg daily, and medication as needed for blood pressure. This morning, his blood pressure was 185/104. He is feeling better but still has some slight clumsiness of his right hand. He is not lightheaded and has no speech or memory problems. He denies pain, headache, breathing difficulties, numbness or tingling, or incontinence. Allergies Allergy/AdvReac Type Severity Reaction Status Date / Time No Known Drug Allergies Allergy . Verified 05/08/19 15:48 Home Medications Home Medications Medication Instructions Recorded Confirmed Type No Known Home Medications 05/08/19 05/08/19 History Patient History Medical History HTN (hypertension) (Chronic) Surgical History S/P wisdom tooth extraction Family History Grandfather Prostate cancer Coronary arteriosclerosis Myocardial infarction Unknown No problems noted. 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, [employer] Feels Safe at Home: Yes Smoking Status: Never smoker Hx Alcohol Use: Yes Alcohol type: beer, wine and hard liquor Alcohol Intake Frequency: Rarely Alcohol Intake Frequency Comment: Once per month on average Hx Substance Use: No Childhood Exposure to Second-Hand Smoke: Yes Dental Care, Regularly: No Physical Activity Frequency: 3-4 Times per Week Seatbelt Use: always Sunscreen Use: Yes Review of Systems Constitutional: + fatigue; no fever and no weakness Eyes: no diplopia, no eye pain and no worsening vision Ear, Nose, Mouth, Throat: no ear pain, no tinnitus, no hearing loss, no dizziness, no snoring, no hoarseness and no dysphagia Respiratory: no cough and no dyspnea Cardiovascular: no chest pain, no palpitations and no lightheadedness Gastrointestinal: no abdominal pain, no nausea and no vomiting Genitourinary: no dysuria and no urinary incontinence Musculoskeletal: no back pain, no neck pain, no radicular pain, no joint pain and no myalgia Integumentary: no rash and no lesions Neurologic: + localized weakness (Right hand) and + dizziness; no gait abnormality, no generalized weakness, no tingling, no numbness, no tremor(s), no abnormal movements, no headache(s), no abnormal speech, no confusion and no memory loss Psychiatric: no depression, no irritability, no anxiety, no difficulty concentrating, no confusion and no hallucinations Endocrine: no fatigue and no flushing Hematologic / Lymphatic: no easy bleeding and no easy bruising Allergy / Immunological: no urticaria and no problem reported Physical Exam Physical Exam: The patient is right-handed. The patient is awake, alert, and attentive. Speech is normal without any aphasia or dysarthria. Mentation and thought processes are intact, with full orientation and normal fund of knowledge. Attention and concentration are normal. Mood and affect are normal and appropriate. General appearance and grooming are normal. Short and long-term memory are intact. The discs are sharp with positive venous pulsations bilaterally. There are no exudates, hemorrhages, or blood vessel changes seen. Pupils are 4 mm bilaterally and reactive to light. Extraocular eye muscles are intact without nystagmus. Visual acuity and visual early seem normal grossly to confrontation. There are no deficits to sensation in the face in all 3 distributions of the fifth cranial nerve bilaterally. Corneal reflexes are positive bilaterally. Facial strength and symmetry was normal bilaterally. Hearing seems intact grossly to voice and finger rub bilaterally. Palate moves well without asymmetry. There is normal sternocleidomastoid and trapezius (shoulder shrug) strength bilaterally. Tongue is midline with good strength bilaterally. Neck has a full range of motion without discomfort. There are no cervical bruits bilaterally. There are no cranial or ocular bruits. Heart is without murmur. There is a regular rhythm and rate. Cervical, thoracic, and lumbar spine are nontender to palpation. Gait is narrow based, with good arm swing, turns, and stance. Balance is normal eyes open or closed. With outstretched arms there is no drift. There are no resting, postural, or action tremors. There is no ataxia with finger to nose testing. There is good facility in the hands although the right may be slightly clumsier than the left. There was no heel to haddad difficulties bilaterally. The right foot may have been slightly more clumsy than the left with rapid alternating movements. No other abnormal involuntary movements are noted. Motor strength is 5/5 diffusely in the arms bilaterally including deltoids, biceps, triceps, brachioradialis, wrist flexors and extensors, bicycle racer, and intrinsic hand muscles. Motor strength is 5/5 diffusely in the legs bilaterally including hip flexors, quadriceps, hamstrings, gastrocnemius, tibialis anterior, tibialis posterior, and Peroneii muscles bilaterally. Toe extensors are normal and there is good bulk in the extensor digitorum brevis muscles bilaterally. The limbs have good tone without rigidity or spasticity. There is no atrophy noted in the muscles. Muscle bulk is normal, there is no tenderness to palpation, no myotonia to percussion, and no fasciculations seen. Sensory examination is intact to touch and pin throughout all 4 limbs diffusely. Reflexes are 1/4 in the biceps, triceps, brachioradialis, quadriceps, and Achilles tendons bilaterally. Toes are downgoing with plantar stimulation bilaterally. Peripheral pulses are present and of normal quality distally in all 4 limbs. There is no peripheral edema noted in the limbs. Results & Data Vital Signs (Past 12 Hours) Vital Signs Temp Pulse Pulse Resp BP Pulse Ox 05/09/19 07:09 36.6 C 63 21 185/104 H 98 05/09/19 03:15 36.4 C L 68 20 155/99 H 98 05/09/19 00:33 70 05/09/19 00:23 73 175/114 H 05/08/19 23:52 36.7 C 62 18 197/136 H 98 05/08/19 23:20 70 20 193/118 H 97 Diagnostic Findings MRI OF THE BRAIN COMBO CLINICAL HISTORY: Ataxia. COMPARISON STUDY: CT of the brain performed the same day 05/08/2019. TECHNIQUE: MRI of the brain was performed utilizing various T1 and T2-weighted sequences in the axial, sagittal, and coronal planes. Contrast-enhanced sequences were acquired following the administration of 12 cc of Gadavist. FINDINGS: Brain parenchyma: There is an 11 mm focus of restricted diffusion identified in the left farida consistent with an acute to subacute lacunar infarct. No additional foci of restricted diffusion are identified. There is minimal subcortical and periventricular microangiopathic change. There is no hemorrhage or mass effect. No enhancing mass lesion is identified on the postcontrast images. Munguia-white matter differentiation is preserved. No extra-axial fluid collection is seen. The cerebellar tonsils are normal in configuration. Ventricles, sulci, and cisterns: Normal in configuration. Pituitary and sella: Unremarkable. Intracranial vasculature: Normal flow voids are maintained at the skull base. Orbits: The bony orbits are grossly intact. Orbital contents are normal in appearance. Sinuses and mastoids: Trace mucosal thickening is noted in the maxillary antra and ethmoid sinuses. The mastoid air cells are clear. Calvarium: Unremarkable. Cervical cord: Partially visualized cervical spinal cord is normal in morphology and signal intensity. IMPRESSION: 1. There is an 11 mm focus of restricted diffusion identified in the left farida consistent with an acute to subacute lacunar infarct. 2. No additional foci of restricted diffusion are identified. 3. There is no hemorrhage or mass effect. Electronically signed by: Michael Jordan M.D. 05/08/2019 8:42 PM (1) Stroke CVA mechanism: unspecified Qualified Code(s): I63.9 - Cerebral infarction, unspecified
[2019-05-09] MEDS ORDERED: LISINOPRIL 20 MG TAB PO STA (12:42)
[2019-05-09] MEDS ORDERED: STROKE PATIENT DISCHARGE STA (13:32)
--- NOTE | 2019-05-09 14:03 | Pharmacy Report ---
Pharmacist Stroke Counseling - Date of Service May 09, 2019 - Scope: Pharmacy has been consulted to provide medication discharge counseling for this patient admitted with ischemic stroke as per the Pharmacist Discharge Counseling for Stroke Patients Protocol. - Medications on Discharge: Home Medications Medication Instructions Recorded Confirmed No Known Home Medications 05/08/19 05/08/19 New Rx's Medication Instructions Recorded aspirin [Ecotrin Low Strength] 81 mg PO QAM 30 Days #30 tab 05/09/19 atorvastatin 80 mg PO QAM 30 Days #60 tab 05/09/19 lisinopril 20 mg PO DAILY #30 tab 05/09/19 - Action: The above medications, specifically ones for stroke treatment/prophylaxis, have been reviewed in detail with the patient prior to discharge. This includes indication, common adverse reactions, drug interactions, and medication administration. Medication counseling has been employed using the teach-back method to ensure understanding. - Outcome: The patient has demonstrated understanding of the medications. Please note, they are aware that the pharmacist will call them within 72 hours post-discharge to confirm that the appropriate medications are being taken and answer any further medication related questions the patient might have at that time. Contact information Individual to be contacted: Patient Phone number: [phone] Best time to call: 12ish Thank you for allowing pharmacy to be involved in the care of this patient. Please call [phone] or [phone] with any additional questions
--- NOTE | 2019-05-09 16:06 | Discharge Summary ---
Date of Service May 09, 2019 Admission HPI Per Admitting Provider Pt is a 43yo with a Hx of HTN not currently on medication presenting with new onset aphasia and what he describes as right sided coordination problems. Was found to have a lacunar stroke in the ED. Pt states that he has a Hx of HTN that he was treating with exercise and diet after stopping his medication about 1 year ago (not sure what medication he was on). Denies a Hx of HTN or HLD, as well as a family Hx of it. States he was in his usual state of health AM 05/07 when he noticed he was having right sided coordination problems and difficulty getting out his words. PMHx: HTN Social Hx: Lives at home with ; states diet is usually healthy when is around but he had donuts this AM since she was away. States he exercises by walking the dog and riding to work. Denies a smoking Hx, use of alcohol or recre ational drugs. Meds: None Allergies: None Admission Exam Per Admitting Provider Constitutional: WD/WN, vitals as above + obese Eyes: PERRL, conjunctivae normal, anicteric sclerae ENMT: external ear and nose normal, oropharynx normal Respiratory: normal respiratory effort, lungs clear to auscultation Cardiovascular: RRR, no murmur, no edema Gastrointestinal (Abdomen): Inspection/Auscultation: abdomen normal to inspection Percussion/Palpation: abdomen soft; abdomen nontender and no guarding Musculoskeletal: no cyanosis or clubbing, extremities motor strength 5/5 Neurologic: PERRL, EOMI, accommodation nl, no face palsy, no dysarthria (pt with no dysarthria on exam) Psychiatric: A+Ox3, euthymic affect Principal Diagnosis Left lacunar stroke Discharge Exam Constitutional WD/WN, vitals as above Eyes PERRL, conjunctivae normal, anicteric sclerae ENMT external ear and nose normal, oropharynx normal Neck trachea midline, no thyromegaly Respiratory normal respiratory effort, lungs clear to auscultation Cardiovascular RRR, no murmur, no edema Gastrointestinal (Abdomen) normal bowel sounds, soft, nontender, no hepatosplenomegaly Musculoskeletal no cyanosis or clubbing, extremities motor strength 5/5 Skin no rashes, warm and dry Neurologic patellar DTR's 2+ bilat, sensation intact and PERRL, EOMI, accommodation nl, no face palsy, no dysarthria Psychiatric A+Ox3, euthymic affect Lymphatic no cervical or axillary lymphadenopathy Discharge Data Allergies Allergy/AdvReac Type Severity Reaction Status Date / Time No Known Drug Allergies Allergy . Verified 05/12/19 09:14 Consultations 05/08/19 21:39 ED Decision to Admit Stat 05/08/19 22:33 Consult Case Management - Discharge Planning Routine Consult Neurology Routine Ordered Studies 05/08/19 15:09 CT angio head w con Stat CT angio neck with con Stat CT head/brain wo con Stat 05/08/19 17:05 MR brain wo/w con Stat Hospital Course (1) Stroke: left lacunar stroke, acute, ischemic diagnosed on MRI normal echo, no afib on monitor, no carotid stenosis on imaging discussed with Dr. Carrera, most likely etiology is hypertension and small vessel disease very minimal symptoms at time of discharge, dramatically improved coordination in right hand provided with scripts for outpatient therapy secondary stroke prevention: - aspirin - Lipitor - blood pressure control, started on Lisinopril 20mg daily (see below) follow up with PCP and neurology (2) HTN (hypertension): h/o HTN but he was able to get off medication a year ago he said that he used to be on Lisinopril 20mg daily BP markedly elevated during admission, some component may be responsive hypertension to the stroke start on Lisinopril 20mg daily instructed to follow low salt diet, get regular exercise should follow up closely with PCP, likely to need higher dose of Lisinopril in near future BP goal would be < 140/90 (3) Hyperlipidemia: LDL > 100, HDL at goal needs high intensity statin with the stroke Lipitor 80mg daily Total Time Total Time Spent Total Time Spent (In Minutes): 35 minutes Total Time Includes: Examination of the Patient, Discharge Planning, Medication Reconciliation and Communication With Other Providers (long discussion with Dr. Carrera) Discharge Plan Discharge Items Patient Disposition: Home - Self-Care Reason For Visit: STROKE Discharge Diagnosis: Hypertension Left pontine stroke, ischemic Dyslipidemia Condition: Good Discharge Goals: Improve disease control and Improve function Activity: Resume your previous activity Non-emergency contact: Primary Care Provider and Neurologist Call non-emergency contact if: you have any medication questions and your symptoms worsen Follow-up/Referrals: Renaldo Jacobo III, CRNP [Primary Care Provider] - 05/12/19 9:15 am (Please, follow up with Renaldo VELA on SundayMay 12 at 9:15 am. *If you need to change this appointment, call the office at [phone].) Stephanie Pemberton PA-C [Physician Windows Security Analyst] - 07/23/19 10:45 am (Please, follow up at [facility] Neurology Office with Nelida Pemberton PA-C on SundayJuly 23 at 11:00 am (arrive 10:45 am). *The office is located at [address] [place] [address] in [place]. If you need to change this appointment, call the office at [phone].) Diet: Heart Healthy Addtl Provider Instructions: Risk Factors for Stroke: Medications: - ASPIRIN: 81mg daily, antiplatelet to prevent further strokes - LIPITOR: 80mg daily, recommend high intensity statin due to stroke and small vessel disease as we discussed, main side effect is muscle aches and pains - LISINOPRIL: 20mg daily, received dose in hospital, next dose due tomorrow morning blood pressure medication, may need higher dose going forward Left pontine (lacunar) stroke, caused the right hand and foot clumsiness MRI showed this small stroke, no other areas of abnormality seen most likely etiology is small vessel ischemic disease coupled with hypertension main objective going forward is to limit risk factors for future strokes - blood pressure control: start Lisinopril 20mg daily, follow low salt diet, get regular exercise 4 days a week follow up in office for blood pressure check on 05/12 - lipid control: start on Lipitor 80mg daily, this helps stabilize plaques - anti-platelet therapy: aspirin 81mg daily - checked your HbA1c, it is normal, therefor you DO NOT have diabetes scripts provided for outpatient physical and occupational therapy FOLLOW UP - Renaldo Jacobo on 05/12 - Lin Pemberton, neurology, 07/23 You can reduce your chances of stroke by working with your medical provider to adopt a healthy lifestyle. Some specific ways to lower your chance of stroke are: * If you are a smoker, now is the time to stop smoking cigarettes * If you are diabetic, improve the control of your blood sugars * Avoid excessive amounts of alcohol * Control high blood pressure * Lose weight if you are overweight * Be sure to lead an active lifestyle * Eat a healthy diet low in salt, cholesterol and fat You should know about other risk factors for stroke that you are unable to control. These include: * Age 55 years or older * Male gender * Certain racial groups: , or / * Family History of Stroke, Mini stroke or Heart Attack * Sickle Cell Disease Follow Up: It is important for you to keep your follow up appointments with your medical provider. Who to Call and When: Medical Emergencies: Call 911 immediately if you experience any of the following warning signs and symptoms of Stroke: * Sudden numbness or weakness of the face, arm or leg, especially on one side of the body * Sudden confusion, trouble speaking or understanding * Sudden trouble seeing in one or both eyes * Sudden trouble walking, dizziness, loss of balance or coordination * Sudden severe headache with no cause Do not delay calling 911 if you experience any warning signs or symptoms of a stroke. Delay in seeking medical attention may affect what treatments can be given to you. . Prescriptions: New aspirin [Ecotrin Low Strength] 81 mg Tablet,Delayed Release (Dr/Ec) 81 mg PO QAM 30 Days Qty: 30 RF: 0 lisinopril 20 mg tablet 20 mg PO DAILY Qty: 30 RF: 3 No Action atorvastatin 80 mg tablet 80 mg PO DAILY Qty: 90 RF: 1 hydrochlorothiazide 25 mg tablet 25 mg PO DAILY Qty: 90 RF: 1 Stand-Alone Forms: Medications to Prevent Stroke, [facility] Discharge Orders: Discharge Order (Routine); Ordered 05/09/19 Ordered By: Antwan Camacho Admission Data Admit Date/Time: 05/08/19 22:46 Attending Provider: Antwan Camacho Admit Provider: Symone Sanches Primary Care Provider: Renaldo Jacobo III Other Providers: Panfilo Carrera III Service: Telemetry Other Interventions: Discharge Summary Assessment (RN) Last Done: 05/09/19 13:51 Pending Studies at Discharge: Yes Studies:: hypercoagulable work up DC Date/Time DO NOT enter until pt leaves facility: 05/09/19 14:36
--- NOTE | 2019-05-12 11:45 | Pharmacy Report ---
Pharmacist Post D/C Phone Note - Phone Note: Date of phone call: May 12, 2019. Individual with whom pharmacist spoke to: TEJAS SANTANA The following questions were reviewed during the phone call with responses listed below each: Can you tell me the medications that you are currently taking as well as when and how you take each medication? -See Table Below - Of note, patient saw Renaldo Jacobo this AM for post-discharge f/u and HCTZ 25 mg daily was added for elevated BP When have you missed any doses of your medications? - None What side effects are you having from your medications, specifically, the new medications you were started on? - None; no bruising/bleeding, no muscle pains What questions do you have about your medications? - None What problems are you having obtaining your medications? - Insurance did not pay for Lipitor 40 mg tablet so he had to get it switched to the 80 mg tablet When is your next appointment with your primary care doctor? - 07/23 with neurology Additional comments: - Patient was very pleasant to speak with. No issues with medications or side effects. Only OTC med is APAP if needed for pain/headache. As per the Pharmacist Discharge Counseling for Stroke Patients Protocol, this phone call has been completed within 72 hours of discharge. Thank you for allowing us to be involved in the care of this patient. - Home Medications: New Rx's Medication Instructions Recorded aspirin [Ecotrin Low Strength] 81 mg PO QAM 30 Days #30 tab 05/09/19 lisinopril 20 mg PO DAILY #30 tab 05/09/19 atorvastatin 80 mg tablet 80 mg PO DAILY #90 tab 05/12/19 hydrochlorothiazide 25 mg tablet 25 mg PO DAILY #90 tab 05/12/19
[2019-05-14 08:19] LABS: Anti-Thrombin III Activity 99 % activity (80-120); B2 Glycoprotein IgA <9 SAU (<=20); B2 Glycoprotein IgG <9 SGU (<=20); B2 Glycoprotein IgM <9 SMU (<=20); Lupus Anticoagulant Negative (Negative); Protein S Functional(Activity) 93 % (70-150)
[2019-05-14 11:48] LABS: Anti Cardiolipin Ab IgG <14 GPL (< = 14); Anti Cardiolipin Ab IgM <12 MPL (< = 12)
== END 2019-05-09 14:36 | disposition home or self-care (01) | DRG 66 ==
LOC: ED 14:26 → SUATTDRO 22:46 → 2S 22:46
DX: R27.8 Other lack of coordination; I10 Essential (primary) hypertension; Z79.82 Long term (current) use of aspirin; Z79.899 Other long term (current) drug therapy; I63.81 Other cerebral infarction due to occlusion or stenosis of small artery; R47.01 Aphasia; E78.5 Hyperlipidemia, unspecified